=== PATIENT | male | born 2000 | race Caucasian/White ===

== ENCOUNTER 2020-09-29 02:00 | Emergency (ER) | payer MEDICAID ==
[~2020-09-29] VITALS: Ht 188 cm; Wt 93.0 kg
[2020-09-29 02:53] VITALS: BP 144/88
== END 2020-09-29 05:38 | disposition home or self-care (01) ==
LOC: ER 02:04
DX: S93.492A Sprain of other ligament of left ankle, initial encounter (principal); X50.1XXA Overexertion from prolonged static or awkward postures, initial encounter; Y93.02 Activity, running; Y92.89 Other specified places as the place of occurrence of the external cause; Y99.8 Other external cause status
CPT/HCPCS: 73610-TC

== ENCOUNTER 2021-04-27 04:39 | Emergency (ER) | payer OTHER ==
[~2021-04-27] VITALS: Ht 172.7 cm; Wt 63.5 kg
[2021-04-27 05:25] LABS: BASOPHILS % (AUTO) 0.1 % (0.0-2.0); EOSINOPHILS % (AUTO) 0.2 % (0.0-6.0); HEMATOCRIT 40 % (39-51); HEMOGLOBIN 13.4 g/dL (13.5-17.5); LYMPHOCYTES # (AUTO) 1.7 /CMM (0.8-4.8); LYMPHOCYTES % (AUTO) 7.3 % (20.0-44.0); MEAN CORPUSCULAR HGB CONC 34 g/dl (31.0-36.0); MEAN CORPUSCULAR VOLUME 85 fL (80-96); MONOCYTES # (AUTO) 1.6 /CMM (0.1-1.30); MONOCYTES % (AUTO) 6.7 % (2.0-12.0); NEUTROPHILS # (AUTO) 20.4 /CMM (1.8-8.9); NEUTROPHILS % (AUTO) 85.7 % (43.0-81.0); PLATELET COUNT (AUTO) 222 /CMM (150-450); RED BLOOD CELL COUNT(AUTO) 4.68 MIL/uL (4.5-6.0); WHITE BLOOD COUNT (AUTO) 23.8 K/uL (4.3-11.0)
[2021-04-27 05:38] LABS: CALCIUM, SERUM 8.8 mg/dL (8.5-10.1); CARBON DIOXIDE 25 mmol/L (21-32); CHLORIDE 103 mmol/L (98-107); CREATININE 0.8 mg/dL (0.6-1.3); GLUCOSE 93 mg/dL (74-106); POTASSIUM 3.7 mmol/L (3.5-5.1); SODIUM SERUM 138 mmol/L (136-145); UREA NITROGEN, BLOOD 9 mg/dL (7-18)
[2021-04-27 05:43] LABS: ALANINE AMINOTRANSFERASE 29 U/L (12-78); ALBUMIN 3.5 g/dL (3.4-5.0); ALCOHOL, BLOOD < 3 mg/dL (0-0); ALKALINE PHOSPHATASE 93 U/L (46-116); ASPARTATE AMINOTRANSFERASE 15 U/L (15-37); BILIRUBIN,DIRECT 0.2 mg/dL (0.0-0.2); BILIRUBIN,TOTAL 0.8 mg/dL (0.2-1.0)
[2021-04-27] MEDS ORDERED: ACETAMINOPHEN ES 500 MG TABLET ONE (06:28)
[2021-04-27] MEDS ORDERED: ACETAMINOPHEN ES 500 MG TABLET PO ONE (06:30)
[2021-04-27] MEDS ORDERED: IV NS 0.9% 1,000 ML BAG IV ONE (06:30)
--- NOTE | 2021-04-27 06:35 | NUR ---
PT STATED HE WILL TRY TO PROVIDE A URINE SAMPLE
--- NOTE | 2021-04-27 06:35 | NUR ---
RADIOLOGY AT BEDSIDE
--- NOTE | 2021-04-27 06:58 | NUR ---
ASKED PT TO PROVIDE URINE SAMPLE, STATED HE WILL TRY. [employer] AT BEDSIDE.
[2021-04-27 08:35] LABS: BILIRUBIN,URINE NEGATIVE (NEGATIVE); COLOR,URINE YELLOW (YELLOW); LEUKOCYTE ESTERASE ,URINE NEGATIVE (NEGATIVE); NITRITE, URINE NEGATIVE (NEGATIVE); PH,URINE 7.5 (5.0-8.0); PROTEIN,URINE NEGATIVE (NEGATIVE); UGLUCOSE NEGATIVE (NEGATIVE)
[2021-04-27 09:05] LABS: RBC,URINE 0-2 /HPF (0-2); SQUAMOUS EPITHELIAL CELL,UR Rare /HPF (None Seen)
[2021-04-27 09:06] LABS: BACTERIA,URINE Few /HPF (None Seen)
--- NOTE | 2021-04-27 10:27 | NUR ---
Patient discharged in stable condition from ER with the police officers. Written and verbal after care instructions given. Patient and the officers verbalize understanding of instruction.
[2021-04-27 10:28] VITALS: BP 131/82
== END 2021-04-27 10:28 ==
LOC: ER 04:43
DX: F15.10 Other stimulant abuse, uncomplicated (principal); R55 Syncope and collapse
CPT/HCPCS: 36415; 70450; 71045; 80048; 80076; 80307; 80320; 81001; 85025; 93005; 96360; 99285; J7030; G0480